=== PATIENT | male | born 1950 | race Caucasian/White ===

== ENCOUNTER 2018-07-08 17:51 | Emergency (ER) | payer MEDICARE ==
[2018-07-08 18:02] VITALS: BP 146/66
[2018-07-08] MEDS ORDERED: TETANUS/DIPHTHERIA/PERTUSSIS 0.5 ML SYRINGE IM ONE (18:30)
--- NOTE | 2018-07-08 18:30 | ED Physician Documentation ---
PD HPI LOWER EXT INJURY - Stated complaint Stated Complaint: LT BOYCE LAC/INJ - Chief complaint Chief Complaint: Laceration - History obtained from History obtained from: Patient - History of Present Illness PD HPI LOW EXT INJURY LOCATION: Left, Lower leg Type of injury: Blunt / blow (he struck boyce on metal object and got laceration to lower leg.) Timing - onset: Today Timing - details: Abrupt onset, Still present Similar symptoms before: Has not had sx before Recently seen: Not recently seen Review of Systems Musculoskeletal: reports: Extremity swelling (chronic leg edema both legs) PD PAST MEDICAL HISTORY - Past Medical History Cardiovascular: None (no h/o CHF. Has been Rx with diuretics for leg edema without improvement. ) - Allergies Allergies/Adverse Reactions: Allergies Allergy/AdvReac Type Severity Reaction Status Date / Time No Known Drug Allergies Allergy Verified 07/08/18 18:02 PD ED PE NORMAL - Vitals Vital signs reviewed: Yes - General General: Alert and oriented X 3, No acute distress, Well developed/nourished - Cardiac Cardiac: RRR, No murmur - Respiratory Respiratory: Clear bilaterally - Derm Derm: Normal color, Warm and dry - Extremities Extremities: No calf tenderness / cord, Other (2+ edema in both legs from knees down. Prior knee replacement scars noted both knees. Left lower leg anteriorly with curved lac down to fatty tissue. Does not expose the bone. No FB nor active bleeding. ) - Neuro Neuro: Alert and oriented X 3, No motor deficit, No sensory deficit, Normal speech Results - Vitals Vitals: Vital Signs - 24 hr 07/08/18 17:58 Temperature 36.4 C L Heart Rate 77 Respiratory 16 Rate Blood Pressure 146/66 H O2 Saturation 95 Oxygen O2 Source Room air Procedures - Laceration (location) left lower leg Length in cm: 2.4 Wound type: Curved, Into subcut fat, Clean Neurovascular status: Sensory intact, Motor intact, Vascular intact Anesthesia: Lidocaine 1% with epi Wound Preparation: Irrigated copiously NS, Wound explored, To the base. No: FB identified Skin layer closure: Nylon, Interrupted, Size #-0 - enter number (4) Other: Patient tolerated well, Dressing applied Complexity: Simple PD MEDICAL DECISION MAKING - ED course Complexity details: considered differential (lac of left boyce, sutured and should heal. He has chronic leg edema, which could delay healing and just generally talked to him about compressive socks/elevating legs/etc. It sounds venous or lymphatic edema and not sounding like CHF. ), d/w patient Departure - Departure Disposition: 01 Home, Self Care Clinical Impression: Bilateral leg edema Laceration of lower leg Qualifiers: Encounter type: initial encounter Laterality: left Qualified Code(s): S81.812A - Laceration without foreign body, left lower leg, initial encounter Condition: Stable Record reviewed to determine appropriate education?: Yes Instructions: ED Edema Legs Bilateral, ED Laceration All Comments: It is okay to wash and shower. Clean off the wound twice a day with soap and water, or peroxide and water. Apply some antibiotic ointment to it to keep it moist. Also to watch for signs of infection such as purulence, redness or increasing pain. Return to your primary care or the ER at the specified time for suture removal. Suture removal about 2 weeks. Tylenol or ibuprofen if needed for pains. Regarding the edema in your legs, you could try some of the compressive support socks. The compression stockings that are sold in the drug stores for this are probably too tight. You can get compressive support socks such as from [employer] or such that help with some of the edema, if you wear them during the day when you are up and around. Discharge Date/Time: 07/08/18 19:22
== END 2018-07-08 19:22 | disposition home or self-care (01) ==
LOC: ED 17:51
DX: S81.812A Laceration without foreign body, left lower leg, initial encounter (principal); W22.8XXA Striking against or struck by other objects, initial encounter; R60.0 Localized edema
CPT/HCPCS: 12001; 90471; 99283

== ENCOUNTER 2018-07-25 11:31 | Emergency (ER) | payer MEDICARE ==
[2018-07-25 12:08] VITALS: BP 175/83
--- NOTE | 2018-07-25 12:34 | ED Physician Documentation ---
PD HPI WOUND RECHECK - Stated complaint Stated Complaint: STITCHES REMOVAL - Chief complaint Chief Complaint: General - Histroy obtained from History obtained from: Patient - History of Present Illness Associated symptoms: No: Fever, Redness, Swelling Similar symptoms before: Diagnosis (At the sutures placed here just over 2 weeks ago and is back for suture removal as directed. We given an longer timeframe than usual because of his leg edema and it looks good now. He has been using leg sock compression socks and that has helped his swelling as well.) Recently seen: Emergency Dept PD PAST MEDICAL HISTORY - Past Medical History Cardiovascular: None, Hypertension, High cholesterol Respiratory: Asthma - Past Surgical History General: Hiatal hernia repair Ortho: Knee replacement - Present Medications Home Medications: Ambulatory Orders Medication Instructions Recorded Confirmed Albuterol Sulfate [Proair Hfa 07/25/18 Inhaler] Cromolyn Sodium [Nasal Allergy 07/25/18 07/25/18 [place]] Gabapentin 07/25/18 Hydrochlorothiazide 07/25/18 Ipratropium [Atrovent] 07/25/18 Lisinopril 07/25/18 Lovastatin 07/25/18 Mometasone/Formoterol [Dulera 100 07/25/18 Mcg/5 Mcg Inhaler] Montelukast [Singulair] 07/25/18 - Allergies Allergies/Adverse Reactions: Allergies Allergy/AdvReac Type Severity Reaction Status Date / Time No Known Drug Allergies Allergy Verified 07/25/18 12:08 - Social History Does the pt smoke?: No Smoking Status: Never smoker Does the pt drink ETOH?: Yes Does the pt have substance abuse?: No - Immunizations Immunizations are current?: Yes PD ED PE NORMAL - General General: Alert and oriented X 3, No acute distress, Well developed/nourished - Derm Derm: Normal color, Warm and dry - Extremities Extremities: Other (healing sutures wound without signs of infection) Results - Vitals Vitals: Vital Signs - 24 hr 07/25/18 12:06 Temperature 36.6 C Heart Rate 80 Respiratory 16 Rate Blood Pressure 175/83 H O2 Saturation 94 Oxygen O2 Source Room air PD MEDICAL DECISION MAKING - ED course Complexity details: considered differential (The wound looks good without any signs of infection. He has less edema in his legs and he did initially. He is encouraged to continue the compressive socks. He should continue wound care until fully healed. We can take the sutures out today.), d/w patient Departure - Departure Disposition: 01 Home, Self Care Clinical Impression: Visit for suture removal, Encounter for re-check of laceration wound Condition: Stable Record reviewed to determine appropriate education?: Yes Comments: Continue the compressive socks long-term to help with the edema. Continue local wound care of cleaning with soap and water and ointment and cover with a Band- Aid until fully healed. It does look healed enough to have the sutures out at this time. Recheck if signs of infection develop. Discharge Date/Time: 07/25/18 12:50
== END 2018-07-25 12:50 | disposition home or self-care (01) ==
LOC: ED 11:31
DX: Z48.02 Encounter for removal of sutures (principal)
CPT/HCPCS: 99281; 99282

== ENCOUNTER 2019-03-01 08:00 | Outpatient (CLI) | payer MEDICARE ==
[2019-03-01 13:59] LABS: BASOPHILS # (AUTO) 0.1 10^3/uL (0.0-0.1); BASOPHILS % (AUTO) 1.2 %; EOSINOPHILS # (AUTO) 0.3 10^3/uL (0.0-0.7); EOSINOPHILS % (AUTO) 4.6 %; HGB - HEMOGLOBIN 15.2 g/dL (14.0-18.0); LYMPHOCYTES # (AUTO) 1.7 10^3/uL (1.5-3.5); LYMPHOCYTES % (AUTO) 24.7 %; MEAN CORPUSCULAR HEMOGLOBIN 31.6 pg (27.0-31.0); MEAN CORPUSCULAR HGB CONC 33.8 g/dL (32.0-36.0); MEAN CORPUSCULAR VOLUME 93.5 fL (80.0-94.0); MONOCYTES # (AUTO) 0.6 10^3/uL (0.0-1.0); MONOCYTES % (AUTO) 8.9 %; NEUTROPHILS # (AUTO) 4.1 10^3/uL (1.5-6.6); NEUTROPHILS % (AUTO) 60.6 %; RED CELL DISTRIBUTION WIDTH 13.8 % (12.0-15.0)
[2019-03-01 14:19] LABS: ALBUMIN 3.9 g/dL (3.2-5.5); ALBUMIN/GLOBULIN RATIO 1.1 (1.0-2.2); ALKALINE PHOSPHATASE 48 IU/L (42-121); ALT ALANINE AMINOTRANSFERASE 44 IU/L (10-60); AST ASPARTATE AMINOTRANSFERASE 26 IU/L (10-42); BILIRUBIN,TOTAL 0.6 mg/dL (0.2-1.0); BUN - BLOOD UREA NITROGEN 24 mg/dL (6-20); CALCIUM 9.2 mg/dL (8.5-10.3); CARBON DIOXIDE - CO2 26 mmol/L (21-32); CHLORIDE 105 mmol/L (101-111); CHOL/HDL RATIO 3.2 (<5.0); CHOLESTEROL 183 mg/dL; CREATININE 0.9 mg/dL (0.6-1.2); GFR - MDRD 84 (>89); GLUCOSE 119 mg/dL (70-100); HDL CHOLESTEROL 57 mg/dL; LDL CHOLESTEROL,CALCULATED 110 mg/dL; LDL/HDL RATIO 1.9 (<3.6); SODIUM 141 mmol/L (135-145); TOTAL PROTEIN 7.3 g/dL (6.7-8.2); VLDL CHOLESTEROL 16 mg/dL
[2019-03-01 14:24] LABS: WHITE BLOOD COUNT 6.7 x10^3/uL (4.8-10.8)
== END 2019-03-01 23:59 | disposition home or self-care (01) ==
LOC: LAB.WCP 08:00
PROVIDERS: ATTEND Family Medicine
DX: E78.5 Hyperlipidemia, unspecified (principal); I10 Essential (primary) hypertension
CPT/HCPCS: 36415; 80053; 80061; 83721; 84443; 85025

== ENCOUNTER 2019-03-01 11:04 | Outpatient (CLI) | payer MEDICARE ==
--- NOTE | 2019-03-01 12:21 | XRAY Report ---
Reason: LUMBAR RADICULOPATHY Procedure Date: 03/01/2019 Accession Number: [id number] / [id number] Procedure: XR - Lumbar Spine 2 View CPT Code: FULL RESULT: EXAM: LUMBOSACRAL SPINE RADIOGRAPHY EXAM DATE: 03/01/2019 11:41 AM. CLINICAL HISTORY: Lumbar radiculopathy. COMPARISONS: None. TECHNIQUE: 3 views. FINDINGS: Alignment: Normal. No spondylolisthesis or scoliosis. Bones: 6 [id number] lumbar vertebral bodies are present, lumbarization of S1. The posterior inferior corner of the L6 vertebral body is flattened suggestive of abnormal motion at this level. No fractures or bone lesions. Disks: There is mild multilevel loss of disk space height which is most pronounced at L3-L4. Facets: There is severe facet arthropathy at L5 and L6 with moderate arthropathy at L4. Sacroiliac Joints: Unremarkable. Soft Tissues: Normal. The visualized bowel gas pattern is normal. IMPRESSION: Lumbarization of the S1/L6 vertebral body with appearance suggestive of abnormal motion at this level. RADIA
== END 2019-03-01 11:05 | disposition home or self-care (01) ==
LOC: DI 11:04
PROVIDERS: ATTEND Family Medicine
DX: M51.36 Other intervertebral disc degeneration, lumbar region (principal); M47.816 Spondylosis without myelopathy or radiculopathy, lumbar region; Q76.49 Other congenital malformations of spine, not associated with scoliosis; E78.5 Hyperlipidemia, unspecified; I10 Essential (primary) hypertension
CPT/HCPCS: 36415; 72100; 80053; 80061; 83721; 84443; 85025

== ENCOUNTER 2020-04-03 07:32 | Outpatient (CLI) | payer MEDICARE ==
[2020-04-03 11:46] LABS: BASOPHILS # (AUTO) 0.1 10^3/uL (0.0-0.1); BASOPHILS % (AUTO) 1.2 %; EOSINOPHILS # (AUTO) 0.7 10^3/uL (0.0-0.7); EOSINOPHILS % (AUTO) 10.5 %; HGB - HEMOGLOBIN 14.3 g/dL (14.0-18.0); LYMPHOCYTES # (AUTO) 1.7 10^3/uL (1.5-3.5); LYMPHOCYTES % (AUTO) 25.4 %; MEAN CORPUSCULAR HEMOGLOBIN 31.1 pg (27.0-31.0); MEAN CORPUSCULAR HGB CONC 32.4 g/dL (32.0-36.0); MEAN CORPUSCULAR VOLUME 96.1 fL (80.0-94.0); MEAN PLATELET VOLUME 10.4 fL (7.4-11.4); MONOCYTES # (AUTO) 0.6 10^3/uL (0.0-1.0); MONOCYTES % (AUTO) 9.7 %; NEUTROPHILS # (AUTO) 3.4 10^3/uL (1.5-6.6); NEUTROPHILS % (AUTO) 52.1 %; PLT - PLATELET COUNT 210 10^3/uL (130-450); RED CELL DISTRIBUTION WIDTH 13.5 % (12.0-15.0); WHITE BLOOD COUNT 6.6 x10^3/uL (4.8-10.8)
[2020-04-03 12:02] LABS: ALBUMIN 3.8 g/dL (3.2-5.5); ALBUMIN/GLOBULIN RATIO 1.2 (1.0-2.2); ALKALINE PHOSPHATASE 38 IU/L (42-121); ALT ALANINE AMINOTRANSFERASE 55 IU/L (10-60); AST ASPARTATE AMINOTRANSFERASE 29 IU/L (10-42); BILIRUBIN,TOTAL 0.8 mg/dL (0.2-1.0); BUN - BLOOD UREA NITROGEN 21 mg/dL (6-20); CARBON DIOXIDE - CO2 27 mmol/L (21-32); CHLORIDE 102 mmol/L (101-111); CHOL/HDL RATIO 3.1 (<5.0); CHOLESTEROL 170 mg/dL; CREATININE 0.9 mg/dL (0.6-1.2); GLUCOSE 117 mg/dL (70-100); HDL CHOLESTEROL 54 mg/dL; LDL CHOLESTEROL,CALCULATED 91 mg/dL; LDL/HDL RATIO 1.7 (<3.6); SODIUM 137 mmol/L (135-145); TOTAL PROTEIN 7.1 g/dL (6.7-8.2); VLDL CHOLESTEROL 25 mg/dL
== END 2020-04-03 23:59 | disposition home or self-care (01) ==
LOC: LAB.WCP 07:32
PROVIDERS: ATTEND Family Medicine
DX: E78.5 Hyperlipidemia, unspecified (principal); I10 Essential (primary) hypertension
CPT/HCPCS: 36415; 80053; 80061; 83721; 84443; 85025

== ENCOUNTER 2020-12-03 08:00 | Outpatient (CLI) | payer MEDICARE ==
[2020-12-03 13:55] LABS: BASOPHILS # (AUTO) 0.1 10^3/uL (0.0-0.1); BASOPHILS % (AUTO) 1.1 %; EOSINOPHILS # (AUTO) 0.4 10^3/uL (0.0-0.7); EOSINOPHILS % (AUTO) 6.9 %; HCT - HEMATOCRIT 44.2 % (42.0-52.0); HGB - HEMOGLOBIN 14.4 g/dL (14.0-18.0); LYMPHOCYTES # (AUTO) 1.5 10^3/uL (1.5-3.5); LYMPHOCYTES % (AUTO) 24.4 %; MEAN CORPUSCULAR HEMOGLOBIN 31.4 pg (27.0-31.0); MEAN CORPUSCULAR HGB CONC 32.6 g/dL (32.0-36.0); MEAN CORPUSCULAR VOLUME 96.5 fL (80.0-94.0); MEAN PLATELET VOLUME 10.5 fL (7.4-11.4); MONOCYTES # (AUTO) 0.6 10^3/uL (0.0-1.0); MONOCYTES % (AUTO) 10.2 %; NEUTROPHILS # (AUTO) 3.5 10^3/uL (1.5-6.6); NEUTROPHILS % (AUTO) 56.4 %; PLT - PLATELET COUNT 221 10^3/uL (130-450); RED BLOOD COUNT 4.58 10^6/uL (4.70-6.10); WHITE BLOOD COUNT 6.2 x10^3/uL (4.8-10.8)
[2020-12-03 14:09] LABS: ESTIMATED AVERAGE GLUCOSE 123 mg/dL (70-100); HEMOGLOBIN A1c% 5.9 % (4.27-6.07)
[2020-12-03 14:24] LABS: ALBUMIN 3.7 g/dL (3.2-5.5); ALBUMIN/GLOBULIN RATIO 1.1 (1.0-2.2); ALKALINE PHOSPHATASE 45 IU/L (42-121); ALT ALANINE AMINOTRANSFERASE 56 IU/L (10-60); AST ASPARTATE AMINOTRANSFERASE 30 IU/L (10-42); BILIRUBIN,TOTAL 0.8 mg/dL (0.2-1.0); BUN - BLOOD UREA NITROGEN 22 mg/dL (6-20); CARBON DIOXIDE - CO2 24 mmol/L (21-32); CHLORIDE 102 mmol/L (101-111); CHOL/HDL RATIO 3.3 (<5.0); CHOLESTEROL 178 mg/dL; GFR - MDRD 74 (>89); GLUCOSE 125 mg/dL (70-100); HDL CHOLESTEROL 54 mg/dL; LDL CHOLESTEROL,CALCULATED 100 mg/dL; LDL/HDL RATIO 1.9 (<3.6); POTASSIUM 3.9 mmol/L (3.5-5.0); SODIUM 136 mmol/L (135-145); TRIGLYCERIDES 122 mg/dL; VLDL CHOLESTEROL 24 mg/dL
[2020-12-03 14:25] LABS: THYROID STIMULATING HORMONE 2.78 uIU/mL (0.34-5.60)
[2020-12-03 14:51] LABS: CREATININE,URINE 86.1 mg/dL
[2020-12-03 15:18] LABS: MICROALBUMIN,URINE < 0.2 mg/dL (0-300.0)
[2020-12-05 15:56] LABS: ALBUMIN 3.8 g/dL (3.8-4.8); ALPHA 1 GLOBULIN 0.3 g/dL (0.2-0.3); ALPHA 2 GLOBULIN 0.9 g/dL (0.5-0.9); BETA 1 GLOBULIN 0.5 g/dL (0.4-0.6); BETA 2 GLOBULIN 0.5 g/dL (0.2-0.5); GAMMA GLOBULIN 0.8 g/dL (0.8-1.7)
== END 2020-12-03 23:59 | disposition home or self-care (01) ==
LOC: LAB.WCP 08:00
PROVIDERS: ATTEND Internal Medicine
DX: I10 Essential (primary) hypertension (principal); E78.5 Hyperlipidemia, unspecified; R73.01 Impaired fasting glucose; Z12.5 Encounter for screening for malignant neoplasm of prostate; G62.9 Polyneuropathy, unspecified
CPT/HCPCS: 36415; 80053; 80061; 82043; 82570; 82607; 83036; 84155; 84165; 84443; 85025; 86334; G0103; 81599; 83721; 84153

== ENCOUNTER 2021-12-13 08:16 | Outpatient (CLI) | payer MEDICARE ==
[2021-12-13 12:00] LABS: BASOPHILS # (AUTO) 0.1 10^3/uL (0.0-0.1); BASOPHILS % (AUTO) 1.3 %; EOSINOPHILS # (AUTO) 0.3 10^3/uL (0.0-0.7); EOSINOPHILS % (AUTO) 4.6 %; HCT - HEMATOCRIT 42.9 % (42.0-52.0); HGB - HEMOGLOBIN 14.4 g/dL (14.0-18.0); LYMPHOCYTES # (AUTO) 1.7 10^3/uL (1.5-3.5); LYMPHOCYTES % (AUTO) 27.8 %; MEAN CORPUSCULAR HEMOGLOBIN 31.4 pg (27.0-31.0); MEAN CORPUSCULAR HGB CONC 33.6 g/dL (32.0-36.0); MEAN CORPUSCULAR VOLUME 93.7 fL (80.0-94.0); MEAN PLATELET VOLUME 10.4 fL (7.4-11.4); MONOCYTES # (AUTO) 0.6 10^3/uL (0.0-1.0); MONOCYTES % (AUTO) 9.7 %; NEUTROPHILS # (AUTO) 3.4 10^3/uL (1.5-6.6); NEUTROPHILS % (AUTO) 55.8 %; PLT - PLATELET COUNT 209 10^3/uL (130-450); RED BLOOD COUNT 4.58 10^6/uL (4.70-6.10); RED CELL DISTRIBUTION WIDTH 13.2 % (12.0-15.0); WHITE BLOOD COUNT 6.1 x10^3/uL (4.8-10.8)
[2021-12-13 12:13] LABS: CREATININE,URINE 54.8 mg/dL; MICROALBUM/CREATININE RATIO,UR 3.6 ug/mg (<30.0); MICROALBUMIN,URINE 0.2 mg/dL (0-300.0)
[2021-12-13 12:57] LABS: THYROID STIMULATING HORMONE 2.54 uIU/mL (0.34-5.60)
[2021-12-13 12:58] LABS: ALBUMIN 3.9 g/dL (3.2-5.5); ALBUMIN/GLOBULIN RATIO 1.2 (1.0-2.2); ALKALINE PHOSPHATASE 45 IU/L (42-121); ALT ALANINE AMINOTRANSFERASE 52 IU/L (10-60); AST ASPARTATE AMINOTRANSFERASE 28 IU/L (10-42); BILIRUBIN,TOTAL 0.8 mg/dL (0.2-1.0); BUN - BLOOD UREA NITROGEN 22 mg/dL (6-20); CALCIUM 8.9 mg/dL (8.5-10.3); CARBON DIOXIDE - CO2 26 mmol/L (21-32); CHLORIDE 99 mmol/L (101-111); CHOLESTEROL 170 mg/dL; CREATININE 0.8 mg/dL (0.6-1.2); GFR - MDRD 95 (>89); GLUCOSE 117 mg/dL (70-100); HDL CHOLESTEROL 56 mg/dL; LDL CHOLESTEROL,CALCULATED 95 mg/dL; LDL/HDL RATIO 1.7 (<3.6); POTASSIUM 3.8 mmol/L (3.5-5.0); SODIUM 135 mmol/L (135-145); TOTAL PROTEIN 7.1 g/dL (6.7-8.2); TRIGLYCERIDES 97 mg/dL; VLDL CHOLESTEROL 19 mg/dL
[2021-12-13 13:58] LABS: ESTIMATED AVERAGE GLUCOSE 126 mg/dL (70-100)
== END 2021-12-13 08:17 | disposition home or self-care (01) ==
LOC: LAB.N 08:16
PROVIDERS: ATTEND Internal Medicine
DX: I10 Essential (primary) hypertension (principal); E78.5 Hyperlipidemia, unspecified; R73.01 Impaired fasting glucose; Z12.5 Encounter for screening for malignant neoplasm of prostate
CPT/HCPCS: 36415; 80053; 80061; 82043; 82570; 83036; 84443; 85025; G0103; 83721; 84153

== ENCOUNTER 2022-06-20 07:45 | Outpatient (CLI) | payer MEDICARE ==
--- NOTE | 2022-06-20 14:30 | XRAY Report ---
PROCEDURE: Shoulder 2 View LT INDICATIONS: FROZEN SHOULDER TECHNIQUE: 2 views of the shoulder were acquired. COMPARISON: None. FINDINGS: Bones: No fractures or dislocations. No suspicious bony lesions. Visualized ribs appear intact. Se virgie glenohumeral as well as moderate to severe acromioclavicular degenerative narrowing. Humeral ost eophytes are present. Soft tissues: No suspicious soft tissue calcifications. IMPRESSION: Moderate to severe acromioclavicular and glenohumeral degenerative narrowing. Reviewed by: Mickie Silverman MD on 06/20/2022 2:28 PM PDT Approved by: Mickie Silverman MD on 06/20/2022 2:28 PM PDT Station ID: [id number]
== END 2022-06-20 07:46 | disposition home or self-care (01) ==
LOC: DI.N 07:45
PROVIDERS: ATTEND Internal Medicine
DX: M75.02 Adhesive capsulitis of left shoulder (principal); M19.012 Primary osteoarthritis, left shoulder

== ENCOUNTER 2022-06-27 12:14 | Outpatient (CLI) | payer MEDICARE ==
--- NOTE | 2022-06-27 13:58 | Ultrasound Report ---
PROCEDURE: Abdomen Limited INDICATIONS: VENTRAL HERNIA TECHNIQUE: Real-time focused scanning was performed of the abdomen, with image documentation. COMPARISON: None FINDINGS: Fat-containing hernia is seen in the supraumbilical region at the area of interest, contai daniel fat with neck measuring 1.9 cm. This does not fully reduce on ultrasound. IMPRESSION: Fat-containing hernia is seen in the supraumbilical region at the area of interest, containing fat wi th neck measuring 1.9 cm. This does not fully reduce on this ultrasound. Reviewed by: Grayson Flor MD on 06/27/2022 1:56 PM PDT Approved by: Grayson Flor MD on 06/27/2022 1:56 PM PDT Station ID: [id number]
== END 2022-06-27 12:15 | disposition home or self-care (01) ==
LOC: DI 12:14
PROVIDERS: ATTEND Internal Medicine
DX: K43.9 Ventral hernia without obstruction or gangrene (principal)

== ENCOUNTER 2022-09-28 09:17 | Outpatient (CLI) | payer MEDICARE ==
[2022-09-28 12:21] LABS: BASOPHILS # (AUTO) 0.1 10^3/uL (0.0-0.1); BASOPHILS % (AUTO) 0.7 %; EOSINOPHILS # (AUTO) 0.3 10^3/uL (0.0-0.7); EOSINOPHILS % (AUTO) 4.6 %; HCT - HEMATOCRIT 45.2 % (42.0-52.0); HGB - HEMOGLOBIN 14.7 g/dL (14.0-18.0); LYMPHOCYTES # (AUTO) 1.2 10^3/uL (1.5-3.5); LYMPHOCYTES % (AUTO) 16.6 %; MEAN CORPUSCULAR HEMOGLOBIN 30.5 pg (27.0-31.0); MEAN CORPUSCULAR HGB CONC 32.5 g/dL (32.0-36.0); MEAN CORPUSCULAR VOLUME 93.8 fL (80.0-94.0); MEAN PLATELET VOLUME 10.6 fL (7.4-11.4); MONOCYTES # (AUTO) 0.6 10^3/uL (0.0-1.0); MONOCYTES % (AUTO) 8.9 %; NEUTROPHILS # (AUTO) 4.8 10^3/uL (1.5-6.6); NEUTROPHILS % (AUTO) 68.5 %; PLT - PLATELET COUNT 221 10^3/uL (130-450); RED BLOOD COUNT 4.82 10^6/uL (4.70-6.10); RED CELL DISTRIBUTION WIDTH 13.2 % (12.0-15.0)
[2022-09-28 13:16] LABS: ALBUMIN/GLOBULIN RATIO 1.2 (1.0-2.2); ALKALINE PHOSPHATASE 48 IU/L (42-121); ALT ALANINE AMINOTRANSFERASE 30 IU/L (10-60); AST ASPARTATE AMINOTRANSFERASE 18 IU/L (10-42); BUN - BLOOD UREA NITROGEN 20 mg/dL (6-20); CALCIUM 9.1 mg/dL (8.5-10.3); CARBON DIOXIDE - CO2 25 mmol/L (21-32); CHLORIDE 99 mmol/L (101-111); CHOL/HDL RATIO 3.7 (<5.0); CHOLESTEROL 205 mg/dL; CREATININE 0.9 mg/dL (0.6-1.2); GFR - MDRD 83 (>89); GLUCOSE 124 mg/dL (70-100); HDL CHOLESTEROL 56 mg/dL; LDL CHOLESTEROL,CALCULATED 126 mg/dL; LDL/HDL RATIO 2.3 (<3.6); POTASSIUM 3.9 mmol/L (3.5-5.0); SODIUM 135 mmol/L (135-145); TOTAL PROTEIN 7.3 g/dL (6.7-8.2); TRIGLYCERIDES 116 mg/dL; VLDL CHOLESTEROL 23 mg/dL
[2022-09-28 13:25] LABS: THYROID STIMULATING HORMONE 2.2 uIU/mL (0.34-5.60)
[2022-09-28 13:28] LABS: ESTIMATED AVERAGE GLUCOSE 120 mg/dL (70-100); HEMOGLOBIN A1c% 5.8 % (4.27-6.07)
== END 2022-09-28 09:18 | disposition home or self-care (01) ==
LOC: LAB.N 09:17
PROVIDERS: ATTEND Internal Medicine
DX: I10 Essential (primary) hypertension (principal); E78.5 Hyperlipidemia, unspecified; R73.01 Impaired fasting glucose; Z12.5 Encounter for screening for malignant neoplasm of prostate; G62.9 Polyneuropathy, unspecified
CPT/HCPCS: 36415; 80053; 80061; 83036; 84443; 85025; G0103; 83721; 84153

== ENCOUNTER 2022-10-06 11:14 | Observation (INO) | payer MEDICARE ==
[~2022-10-06 11:14] MED LIST: CEFAZOLIN 2G/50ML 0.9% NS 2 GM/50 ML BAG IV ONE
[2022-10-06] MEDS ORDERED: MIDAZOLAM 2 MG/2 ML VIAL ONE (11:38)
[2022-10-06] MEDS ORDERED: fentaNYL 100 MCG/2 ML VIAL ONE ×2 (11:39→15:10)
[2022-10-06] MEDS ORDERED: ROCURONIUM 50 MG/5 ML VIAL ONE ×2 (11:40→13:45)
[2022-10-06] MEDS ORDERED: BUPIVACAINE 0.25% PF 30 ML VIAL ONE (11:43)
[2022-10-06] MEDS ORDERED: fentaNYL 100 MCG/2 ML VIAL IVP PRN (12:06)
[2022-10-06] MEDS ORDERED: MORPHINE 2 MG/ML CARPUJECT IVP PRN (12:06)
[2022-10-06] MEDS ORDERED: ATROPINE ABBOJECT 1 MG/10 ML SYRINGE IVP PRN (12:06)
[2022-10-06] MEDS ORDERED: HYDROmorphone 0.5 MG/0.5 ML SYRINGE IVP PRN ×2 (12:06→15:38)
[2022-10-06] MEDS ORDERED: ONDANSETRON 4 MG/2 ML VIAL IVP PRN ×2 (12:06→15:38)
[2022-10-06] MEDS ORDERED: ePHEDrine 50 MG/ML VIAL IVP PRN (12:06)
[2022-10-06] MEDS ORDERED: METOCLOPRAMIDE 10 MG/2 ML VIAL IVP PRN (12:06)
[2022-10-06] MEDS ORDERED: NALOXONE 0.4 MG/ML VIAL IVP PRN (12:06)
--- NOTE | 2022-10-06 12:06 | ANESTHESIA ---
Pre-Anesthesia VS, & Labs - Diagnosis recurrent ventral hernia - Procedure laparoscopic ventral hernia repair Vital Signs: Temp Pulse Resp BP Pulse Ox O2 Flow Rate 36.4 C L 62 16 144/69 H 98 0 10/06/22 11:34 10/06/22 11:34 10/06/22 11:34 10/06/22 11:34 10/06/22 11:34 10/06/22 11:34 Height: 6 ft 1 in Weight (kg): 153 kg Body Mass Index: 44.4 BMI Classification: Morbidly Obese - NPO >8 hours - Lab Results Lab results reviewed: Yes Home Medications and Allergies Home Medications: Ambulatory Orders Alpha Lipoic Acid 600 mg PO BID 09/23/22 Dupilumab [Dupixent Syringe] 300 mg SQ ONCE 09/23/22 EPINEPHrine [Epinephrine] 0.3 mg IJ ONCE PRN 09/23/22 Fluticasone Propionate 2 sprays NS DAILY 09/23/22 Fluticasone/Vilanterol [Breo Ellipta 200-25 Mcg INH] 1 each IH DAILY 09/23/22 Ipratropium [Atrovent] 2 puffs INH BID PRN 09/23/22 Loratadine [Allergy Relief] 10 mg PO DAILY 09/23/22 Meloxicam [Mobic] 7.5 mg PO DAILY 09/23/22 [place]-3/Dha/Epa/Fish Oil [Fish Oil 1,000 mg Softgel] 1 each PO DAILY 09/23/22 Umeclidinium [place] [Incruse Ellipta] 1 tab IH DAILY 09/23/22 Albuterol Sulfate [Proair Hfa Inhaler] 2 sprays INH Q4HR PRN 07/25/18 Gabapentin 300 mg PO BID 07/25/18 Lovastatin 40 mg PO QPM 07/25/18 Montelukast [Singulair] 10 mg PO DAILY 07/25/18 hydroCHLOROthiazide [Hydrochlorothiazide] 25 mg PO DAILY 07/25/18 lisinopriL [Lisinopril] 30 mg PO DAILY 07/25/18 Alpha Lipoic Acid 600 mg PO BID 09/23/22 Dupilumab [Dupixent Syringe] 300 mg SQ ONCE 09/23/22 EPINEPHrine [Epinephrine] 0.3 mg IJ ONCE PRN 09/23/22 Fluticasone Propionate 2 sprays NS DAILY 09/23/22 Fluticasone/Vilanterol [Breo Ellipta 200-25 Mcg INH] 1 each IH DAILY 09/23/22 Ipratropium [Atrovent] 2 puffs INH BID PRN 09/23/22 Loratadine [Allergy Relief] 10 mg PO DAILY 09/23/22 Meloxicam [Mobic] 7.5 mg PO DAILY 09/23/22 [place]-3/Dha/Epa/Fish Oil [Fish Oil 1,000 mg Softgel] 1 each PO DAILY 09/23/22 Umeclidinium [place] [Incruse Ellipta] 1 tab IH DAILY 09/23/22 Allergies/Adverse Reactions: Allergies Allergy/AdvReac Type Severity Reaction Status Date / Time No Known Drug Allergies Allergy Verified 07/25/18 12:08 Anes History & Medical History - Anesthetic History Anesthesia Complications: reports: No previous complications Family history of Anesthesia Complications: Denies Family history of Malignant Hyperthermia: Denies - Medical History Cardiovascular: reports: Hypertension, High cholesterol Pulmonary: reports: Asthma, Sleep apnea, CPAP use Gastrointestinal: reports: None Urinary: reports: None Musculoskeletal: reports: Osteoarthritis Endocrine/Autoimmune: reports: Other Skin: reports: None Smoking Status: Never smoker Psychosocial: reports: Alcohol (social) History of Cancer?: No - Surgical History General: reports: Colonoscopy, Other Eyes Ears Nose Throat (EENT): reports: Cataracts Orthopedic: reports: Knee replacement Exam General: Alert, Oriented x3, Cooperative Dental: WNL Mouth Openin Fingerbreadth Neck Mobility: Normal Mallampati classification: II Thyromental Distance: 4-6 cm Respiratory: Lungs clear, Normal breath sounds, No respiratory distress Cardiovascular: Regular rate Neurological: Normal speech Mental/Cognitive Status: Alert/Oriented X3, Normal for patient Cognitive Status: Within normal limits Plan Anesthesia Type: General Consent for Procedure(s) Verified and Reviewed: Yes Code Status: Attempt Resuscitation ASA classification: 3-Severe systemic disease Is this case an emergency?: No
[2022-10-06] MEDS ORDERED: LACTATED RINGERS 1,000 ML IV SCH (13:00)
--- NOTE | 2022-10-06 13:09 | HISTORY & PHYSICAL EXAMINATION ---
Chief Complaint - Chief Complaint Chief Complaint: painful hernia bulge History of Present Illness - History Obtained From Records Reviewed: yes History obtained from: pt Exam Limitations: none - History of Present Illness HPI Comment/Other: history of ventral hernia repair. now has 2 recurrent hernias at the umbilicus and ventral. History - Past Medical History Cardiovascular: reports: Hypertension, High cholesterol Respiratory: reports: Asthma, Sleep apnea, CPAP use Endocrine/Autoimmune: reports: Other GI: reports: None : reports: None HEENT: reports: Chronic vision loss, Chronic sinusitis, Other Psych: reports: None Musculoskeletal: reports: Osteoarthritis Derm: reports: None MRSA Hx?: No - Past Surgical History General: reports: Colonoscopy, Other Ortho: reports: Knee replacement HEENT: reports: Cataracts Meds/Allgy - Home Medications Home Medications: Ambulatory Orders Medication Instructions Recorded Confirmed Albuterol Sulfate [Proair Hfa 2 sprays INH Q4HR PRN 07/25/18 10/06/22 Inhaler] Gabapentin 300 mg PO BID 07/25/18 10/06/22 Lovastatin 40 mg PO QPM 07/25/18 10/06/22 Montelukast [Singulair] 10 mg PO DAILY 07/25/18 10/06/22 hydroCHLOROthiazide 25 mg PO DAILY 07/25/18 10/06/22 [Hydrochlorothiazide] lisinopriL [Lisinopril] 30 mg PO DAILY 07/25/18 10/06/22 Alpha Lipoic Acid 600 mg PO BID 09/23/22 10/06/22 Dupilumab [Dupixent Syringe] 300 mg SQ ONCE 09/23/22 10/06/22 EPINEPHrine [Epinephrine] 0.3 mg IJ ONCE PRN 09/23/22 09/23/22 Fluticasone Propionate 2 sprays NS DAILY 09/23/22 10/06/22 Fluticasone/Vilanterol [Breo 1 each IH DAILY 09/23/22 10/06/22 Ellipta 200-25 Mcg INH] Ipratropium [Atrovent] 2 puffs INH BID PRN 09/23/22 10/06/22 Loratadine [Allergy Relief] 10 mg PO DAILY 09/23/22 10/06/22 Meloxicam [Mobic] 7.5 mg PO DAILY 09/23/22 10/06/22 [place]-3/Dha/Epa/Fish Oil [Fish Oil 1 each PO DAILY 09/23/22 10/06/22 1,000 mg Softgel] Umeclidinium [place] [Incruse 1 tab IH DAILY 09/23/22 10/06/22 Ellipta] - Allergies Allergies/Adverse Reactions: Allergies Allergy/AdvReac Type Severity Reaction Status Date / Time No Known Drug Allergies Allergy Verified 07/25/18 12:08 Review of Systems - Other Findings Other Findings: 10 pt ros as above otherwise unremarkable Exam - Vital Signs Reviewed Vital Signs: Yes Vital Signs: Vital Signs x48h Temp Pulse Resp BP Pulse Ox O2 Flow Rate 10/06/22 11:34 36.4 C L 62 16 144/69 H 98 0 - Physical Exam General Appearance: positive: No acute distress, Alert Eyes Bilateral: positive: PERRL, EOMI, No scleral icterus ENT: positive: No signs of dehydration Neck: positive: No JVD, Trachea midline Respiratory: positive: No respiratory distress, Breath sounds nml Cardiovascular: positive: Regular rate & rhythm Abdomen: positive: Non-tender, No distention, Other (umbilical and ventral hernia and very large diastasis) Neurologic/Psychiatric: positive: Oriented x3 Conclusion/Plan - Problem List (1) Ventral hernia, recurrent Conclusion/Plan: plan laparoscopic repair. parq held and consent obtained - Lab Results Lab results reviewed: Yes
[2022-10-06] MEDS ORDERED: DEXAMETHASONE 4 MG/ML VIAL ONE (13:21)
[2022-10-06] MEDS ORDERED: ONDANSETRON 4 MG/2 ML VIAL ONE (13:21)
[2022-10-06] MEDS ORDERED: ACETAMINOPHEN 1,000 MG/100 ML 1,000 MG/100 ML BAG IV ONE (13:46)
[2022-10-06] MEDS ORDERED: BUPIVACAINE 0.25% PF 30 ML VIAL SUBQ ONE ×2 (13:55)
[2022-10-06] MEDS ORDERED: HYDROmorphone 1 MG/ML CARPUJECT ONE (14:07)
[2022-10-06] MEDS ORDERED: SUGAMMADEX 200 MG/2 ML VIAL IVP ONE (14:50)
[2022-10-06] MEDS ORDERED: LACTATED RINGERS 1,000 ML IV ONE (15:27)
[2022-10-06] MEDS ORDERED: ONDANSETRON ODT 4 MG TABLET TL PRN (15:38)
[2022-10-06] MEDS ORDERED: ACETAMINOPHEN 325 MG TABLET PO PRN (15:38)
[2022-10-06] MEDS ORDERED: oxyCODONE 5 MG TABLET PO PRN (15:38)
[2022-10-06] MEDS ORDERED: SODIUM CHLORIDE FLUSH 0.9% 10 ML SYRINGE IVP PRN (15:38)
--- NOTE | 2022-10-06 15:57 | ANESTHESIA POST OP EVALUATION ---
Anesthesia Post Eval - Post Anesthesia Eval Vitals: Last Vital Signs Temp 36.9 C 10/06/22 15:55 Pulse 66 10/06/22 15:55 Resp 16 10/06/22 15:55 BP 146/73 H 10/06/22 15:55 Pulse Ox 100 10/06/22 15:55 O2 Flow Rate 0 10/06/22 11:34 CV Function Including HR & BP: Stable Pain Control: Satisfactory Nausea & Vomiting: Negative Mental Status: Baseline Respiratory Status: Airway Patent Hydration Status: Satisfactory Anesthesia Complications: None
--- NOTE | 2022-10-06 16:01 | OPERATIVE REPORT ---
Operative Report - General Procedure Date: 10/06/22 Planned Procedure: laparoscopic repair recurrent umbilical and ventral hernia Pre-Op Diagnosis: recurrent umbilical and ventral henria Procedure Performed: laparoscopic repair recurrent ventral hernia Post Op Diagnosis: incararted umbilical and ventral hernia - Procedure Note Primary Surgeon: mark parker Anesthesia Technique: General ET tube, Local Pathology: none Estimated Blood Loss (mL): 5 Drain/Tube Type: Other (none) Indications: painful hernia bulges Findings: as above 8 x 10 ventrlight mesh Complications: none - Other Other Information/Narrative: The patient was properly identified brought to the operating room and placed in supine position. Sequential compression devices were placed. General endotracheal anesthesia was induced. Nettles catheter was placed. He was prepped and draped in a sterile fashion and given preoperative antibiotics. He had a prior open umbilical hernia repair. He had a recurrence cephalad and had a vertical 6 cm incision and lower ventral hernia repair with mesh. He has developed a recurrence of both he is symptomatic. Laparoscopic repair was recommended. Local anesthetic was given to incision areas. A 2-1/2 cm incision was made in the left upper quadrant. Dissection proceeded down to fascia. Fascia was incised lifted upwards and abdomen entered with a Veress needle. A 30 degree scope with trocar was placed under vision. There was no evidence of injury from Veress needle or trocar placement. Under direct vision a 5 mm trocar was placed in the left lower quadrant the right lower quadrant and the right upper quadrant. He had incarcerated omentum and both hernia defects. This was carefully reduced with gentle retraction and use of cautery. He had the appearance of periodic small bowel within the umbilical hernia defect. This was reduced prior to surgery. The falciform ligament was taken down. Adherent adipose tissue and a band of adipose tissue from the bowel mesentery to the lower abdominal wall was released. Hemostasis was assured. He has a very large diastases he had an approximately 4 cm ventral defect as well as a 3 cm umbilical defect and caudad of this he had separation of his fascia with weakness. 8 x 10 inch ventral light mesh was placed intra-abdominal and secured to the abdominal wall with full-thickness interrupted 0 Ethibond sutures. The mesh was further secured with CapSure tacks. The mesh lay in good position. No apparent complications. Fascia at the larger left upper quadrant trocar site was closed with a [id number] 0 Vicryl. Skin was closed with interrupted a running 4-0 Monocryl subcuticular suture after trochars were removed under direct vision. Dressings were applied. He was awakened and brought to recovery in good condition.
[2022-10-06] MEDS ORDERED: CARBOXYMETHYLCELLULOSE OPHTH DROPS EACHEYE PRN (17:07)
[2022-10-06] MEDS ORDERED: CARBOXYMETHYLCELLULOSE OPHTH DROPS ONE (17:11)
[2022-10-06] MEDS: SODIUM CHLORIDE FLUSH 0.9% 10 ML SYRINGE IVP SCH (17:20)
[2022-10-06] MEDS: D5.45NS W/20 MEQ KCL 1,000 ML IV SCH (17:20)
[2022-10-06] MEDS: IPRATROPIUM 0.2 MG/ML NEB INH SCH (18:09)
[2022-10-06 18:47] LABS: CORONAVIRUS 229E-RESP PCR NOT DETECTED; CORONAVIRUS HKU1-RESP PCR NOT DETECTED; CORONAVIRUS NL63-RESP PCR NOT DETECTED; CORONAVIRUS OC43-RESP PCR NOT DETECTED; HUMAN METAPNEUMOVIRUS NOT DETECTED; INFLUENZA A- RESP PCR PANEL NOT DETECTED; RHINOVIRUS/ENTEROVIRUS NOT DETECTED; SARS-CoV-2 -RESP PCR PANEL NOT DETECTED
[2022-10-06 18:48] LABS: B. PARAPERTUSSIS- RESP PCR PAN NOT DETECTED; B. PERTUSSIS- RESP PCR PANEL NOT DETECTED; C. PNEUMONIAE- RESP PCR PANEL NOT DETECTED; INFLUENZA B - RESP PCR PANEL NOT DETECTED; M. PNEUMONIAE- RESP PCR PANEL NOT DETECTED; PARAINFLUENZA VIRUS 1 NOT DETECTED; PARAINFLUENZA VIRUS 2 NOT DETECTED; PARAINFLUENZA VIRUS 3 NOT DETECTED; PARAINFLUENZA VIRUS 4 NOT DETECTED; RSV- RESP PCR PANEL NOT DETECTED
[2022-10-06] MEDS: GABAPENTIN 300 MG CAPSULE PO SCH (20:09)
[2022-10-06] MEDS: HEPARIN 5,000 UNIT/ML VIAL SUBQ SCH (20:09)
[2022-10-06] MEDS ORDERED: MONTELUKAST 10 MG TABLET PO SCH (21:00)
[2022-10-07] MEDS: SODIUM CHLORIDE FLUSH 0.9% 10 ML SYRINGE IVP SCH ×2 (01:00→08:43)
[2022-10-07] MEDS: D5.45NS W/20 MEQ KCL 1,000 ML IV SCH (03:29)
[2022-10-07] MEDS: IPRATROPIUM 0.2 MG/ML NEB INH SCH ×2 (07:29→12:33)
[2022-10-07] MEDS: GABAPENTIN 300 MG CAPSULE PO SCH (08:42)
[2022-10-07] MEDS: HEPARIN 5,000 UNIT/ML VIAL SUBQ SCH (08:54)
[2022-10-07] MEDS ORDERED: lisinopriL 20 MG TABLET PO SCH (09:00)
[2022-10-07] MEDS ORDERED: hydroCHLOROthiazide 25 MG TABLET PO SCH (09:00)
[2022-10-07] MEDS ORDERED: LORATADINE 10 MG TABLET PO SCH (09:00)
--- NOTE | 2022-10-07 09:17 | PROVIDER PROGRESS NOTE ---
Subjective - Prog Note Date Prog Note Date: 10/07/22 - Subjective Subjective: feeling ok. no nausea. slept ok last pm. pain ok Objective - Vital Signs/Intake & Output Reviewed Vital Signs: Yes Vital Signs: Vital Signs x48h Temp Pulse Pulse Resp BP BP Pulse Ox 10/07/22 08:59 36.8 C 66 19 121/61 92 10/07/22 07:30 74 18 10/07/22 04:57 37.1 C 57 L 18 111/57 L 95 Intake & Output: Intake & Output 10/04/22 10/05/22 10/06/22 10/07/22 23:59 23:59 23:59 23:59 Intake Total 320 1000 Output Total 827 200 Balance -507 800 - Objective General Appearance: positive: No acute distress, Alert Eyes Bilateral: positive: PERRL, EOMI Respiratory: positive: No respiratory distress Abdomen: positive: Non-tender, No distention Neurologic/Psychiatric: positive: Oriented x3 - Lab Results Other Labs: Lab Results x24hrs 10/06/22 Range/Units 17:45 Nasal Adenovirus (PCR) NOT DETECTED Nasal B. parapertussis DNA (PCR) NOT DETECTED Nasal Coronavir 229E PCR NOT DETECTED Nasal Coronavir HKU1 PCR NOT DETECTED Nasal Coronavir NL63 PCR NOT DETECTED Nasal Coronavir OC43 PCR NOT DETECTED Nasal Enterovir/Rhinovir PCR NOT DETECTED Nasal Influenza B PCR NOT DETECTED Nasal Influenza A PCR NOT DETECTED Nasal Parainfluen 1 PCR NOT DETECTED Nasal Parainfluen 2 PCR NOT DETECTED Nasal Parainfluen 3 PCR NOT DETECTED Nasal Parainfluen 4 PCR NOT DETECTED Nasal RSV (PCR) NOT DETECTED Nasal B.pertussis DNA PCR NOT DETECTED Nasal C.pneumoniae (PCR) NOT DETECTED Main Human Metapneumo PCR NOT DETECTED Nasal M.pneumoniae (PCR) NOT DETECTED Nasal SARS-CoV-2 (PCR) NOT DETECTED Assessment/Plan - Problem List (1) Ventral hernia, recurrent Impression: doing well. shin out when ambulating ok. home when pain ok, tolerating po, ambulating safely
--- NOTE | 2022-10-07 14:09 | Discharge Plan ---
Discharge Plan Problem Reviewed?: Yes Disposition: Home, Self Care Condition: Good Prescriptions: oxyCODONE/ACET 5/325 [Percocet 5 mg/325 mg] 1 each PO Q4-6H PRN #30 tablet PRN Reason: Pain Diet: Regular Activity Restrictions: Activity as Tolerated (no driving while taking prescription pain pills) Shower Restrictions: No (may shower and get the dressings wet. leave the dressings on for a wk) Plan of Treatment: large repair recurrent abdominal wall hernias Assessment: doing exceptional well after very large repair incarcerated ventral hernias Additional Instructions or Follow Up instructions: call with any concerns [phone] No Smoking: If you smoke, Please STOP! Call for help. Follow-up with: Manas Keller MD [Provider Admit Priv/Credential] -
--- NOTE | 2022-10-07 14:13 | DISCHARGE SUMMARY ---
"Discharge Summary Admit Date: 10/06/22 Discharge Date: 10/07/22 Discharging Provider: mark parker md Discharge Facility Name: formerly [facility] - DIAGNOSES Admission Diagnoses: 2 recurrent incarcerated ventral hernias Discharge Diagnoses with Status of Each Condition: doing unusually and exceptionally well after a large repair of 2 incarcerated ventral hernias with 8 x 10 inch mesh patch - HPI History of Present Illness: history 2 prior ventral hernia repairs. both have recurred, are incarcerated, and symptomatic - CONSULTS | PROCEDURES Procedures: laparosocopic repair recurrent incarcerated ventral hernias shin - HOSPITAL COURSE Hospital Course: he is doing exceptionally well. I have done 100's of similarly large recurrent hernias and nearly all people have an ileus, significant pain, and urinary retention. he initially was ordered in patient with expectation at least 2 days in the hospital. often with a 8 x 10 inch repair of recurrent ventral hernias people are in the hospital 3 to 4 days. plan change status to surgical outpatient with overnight stay. - ALLERGIES Allergies/Adverse Reactions: Allergies Allergy/AdvReac Type Severity Reaction Status Date / Time No Known Drug Allergies Allergy Verified 07/25/18 12:08 - MEDICATIONS Home Medications: Ambulatory Orders Medication Instructions Recorded Confirmed Albuterol Sulfate [Proair Hfa 2 sprays INH Q4HR PRN 07/25/18 10/06/22 Inhaler] Gabapentin 300 mg PO BID 07/25/18 10/06/22 Lovastatin 40 mg PO QPM 07/25/18 10/06/22 Montelukast [Singulair] 10 mg PO DAILY 07/25/18 10/06/22 hydroCHLOROthiazide 25 mg PO DAILY 07/25/18 10/06/22 [Hydrochlorothiazide] lisinopriL [Lisinopril] 30 mg PO DAILY 07/25/18 10/06/22 Alpha Lipoic Acid 600 mg PO BID 09/23/22 10/06/22 Dupilumab [Dupixent Syringe] 300 mg SQ ONCE 09/23/22 10/06/22 EPINEPHrine [Epinephrine] 0.3 mg IJ ONCE PRN 09/23/22 09/23/22 Fluticasone Propionate 2 sprays NS DAILY 09/23/22 10/06/22 Fluticasone/Vilanterol [Breo 1 each IH DAILY 09/23/22 10/06/22 Ellipta 200-25 Mcg INH] Ipratropium [Atrovent] 2 puffs INH BID PRN 09/23/22 10/06/22 Loratadine [Allergy Relief] 10 mg PO DAILY 09/23/22 10/06/22 Meloxicam [Mobic] 7.5 mg PO DAILY 09/23/22 10/06/22 [place]-3/Dha/Epa/Fish Oil [Fish Oil 1 each PO DAILY 09/23/22 10/06/22 1,000 mg Softgel] Umeclidinium [place] [Incruse 1 tab IH DAILY 09/23/22 10/06/22 Ellipta] oxyCODONE/ACET 5/325 [Percocet 5 1 each PO Q4-6H PRN #30 tablet 10/07/22 mg/325 mg] - PHYSICAL EXAM AT DISCHARGE General Appearance: positive: No acute distress, Alert Eyes Bilateral: positive: EOMI, No scleral icterus ENT: positive: No signs of dehydration Neck: positive: No JVD, Trachea midline Respiratory: positive: No respiratory distress Abdomen: positive: Non-tender, No distention, Other (dressings c/d/i) Neurologic/Psychiatric: positive: Oriented x3 - QUALITY (Female Hip Fx Only) Was patient sent home on osteoporosis medication?: No - FOLLOW UP Follow Up: surgery office in about a week and as needed call with any concerns [phone]"
[2022-10-07 14:42] VITALS: BP 128/52
== END 2022-10-07 14:45 | disposition home or self-care (01) ==
LOC: SDS 11:14 → UNDOADMOB 15:38 → INTOOBSV 15:38 → MS2 15:38
PROVIDERS: ADMIT Surgery; ATTEND Surgery
PROC: 0WUF4JZ Supplement Abdominal Wall with Synthetic Substitute, Percutaneous Endoscopic Approach (ICD-10-PCS; principal; 2022-10-07)
DX: K43.0 Incisional hernia with obstruction, without gangrene (principal); K42.0 Umbilical hernia with obstruction, without gangrene; G47.30 Sleep apnea, unspecified; I10 Essential (primary) hypertension; J45.909 Unspecified asthma, uncomplicated; H26.9 Unspecified cataract; Z20.822 Contact with and (suspected) exposure to COVID-19; Z96.659 Presence of unspecified artificial knee joint
CPT/HCPCS: 49616; 87633; 94640; A9270; C1781; J0131; J0690; J1170; J7120